=== PATIENT | male | born 1945 | race Caucasian/White ===

== ENCOUNTER 2020-06-13 08:19 | Outpatient (CLI) | payer OTHER | END 2020-06-13 23:59 | disposition home or self-care (01) | LOC: CVU 08:19 | PROVIDERS: ATTEND Physician Assistant Medical | DX: I08.0 Rheumatic disorders of both mitral and aortic valves (principal); I65.23 Occlusion and stenosis of bilateral carotid arteries; I10 Essential (primary) hypertension; R55 Syncope and collapse; R09.89 Other specified symptoms and signs involving the circulatory and respiratory systems | CPT/HCPCS: 93306; 93880 ==